=== PATIENT | female | born 1985 | race Hispanic/Latino ===

== ENCOUNTER 2018-06-17 01:06 | Emergency (ER) | payer MEDICAID ==
[2018-06-17 01:30] VITALS: TEMP 98.3; O2SAT 100
--- NOTE | 2018-06-17 01:34 | C.PDOC ---
History Of Present Illness 33 year old female patient presents to the ER with c/o nasal congestion with hx of the same symptoms. Patient took amoxicillin with no relief. Patient denies allergy contacts, rash, fever and chills. Time Seen by Provider: 06/17/18 01:25 Chief Complaint (Nursing): Allergic Reaction History Per: Patient History/Exam Limitations: no limitations Onset/Duration Of Symptoms: Days Current Symptoms Are (Timing): Still Present Past Medical History Reviewed: Historical Data, Nursing Documentation, Vital Signs Vital Signs: Last Vital Signs Temp 98.3 F 06/17/18 01:16 Pulse 82 06/17/18 01:44 Resp 16 06/17/18 01:44 BP 134/82 06/17/18 01:44 Pulse Ox 100 06/17/18 01:44 Surgical History: Cholecystectomy - [facility] MONITORING NOS (04/18/13) Family History: States: No Known Family Hx - Social History Hx Alcohol Use: No Hx Substance Use: No Review Of Systems Except As Marked, All Systems Reviewed And Found Negative. Constitutional: Negative for: Fever, Chills, Other (allergy contacts) ENT: Positive for: Nose Congestion Skin: Negative for: Rash Physical Exam - Physical Exam Appears: Non-toxic, Other (morbidly obese ) Skin: Normal Color, Warm, Dry Head: Atraumatic, Normacephalic Eye(s): bilateral: Normal Inspection, PERRL, EOMI Nose: Other (moderately congested R>L ) Oral Mucosa: Moist Throat: Normal Neck: Normal ROM, Supple Chest: Symmetrical, No Deformity Cardiovascular: Rhythm Regular Respiratory: Normal Breath Sounds Neurological/Psych: Oriented x3, Normal Speech Gait: Steady ED Course And Treatment O2 Sat by Pulse Oximetry: 100 (RA) Pulse Ox Interpretation: Normal Medical Decision Making Medical Decision Making: plans: -- benadryl -- motrin -- sudafed nasal congestion no puss OTC nasal/sinus congestion meds. Disposition Doctor Will See Patient In The: Office Counseled Patient/Family Regarding: Studies Performed, Diagnosis - Disposition Referrals: Chapo Hernandez MD [Medical Doctor] - Disposition: HOME/ ROUTINE Disposition Time: 01:34 Condition: GOOD Additional Instructions: Motrin 600 mg every 6 hours as needed for nasal/sinus headache pain Benadryl: antihistamine 25-50 mg every 6 hours as needed (nasal congestion) Claritin/Loratidine daily (take in AM) decreases nasal congestion Pseudafed 30-60 mg every 6 hours as needed (nasal decongestant) Flonase Nasal Spay: 1 spray each nostril every 12 hours- directly decreases nasal passage congestion Instructions: Seasonal Allergies in Adults, Loratadine and Pseudoephedrine Forms: [employer] (Citizen Of [place]) - Clinical Impression Clinical Impression: Nasal congestion - Scribe Statement The provider has reviewed the documentation as recorded by the Scribe [place] Do Provider Attestation: All medical record entries made by the Scribe were at my direction and personally dictated by me. I have reviewed the chart and agree that the record accurately reflects my personal performance of the history, physical exam, medical decision making, and the department course for this patient. I have also personally directed, reviewed, and agree with the discharge instructions and disposition.
[2018-06-17 01:46] VITALS: BP 134/82; PULSE 82; RESP 16
== END 2018-06-17 01:44 | disposition home or self-care (01) ==
LOC: C.ER 01:06
DX: R09.81 Nasal congestion (principal)